=== PATIENT | female | born 1985 | race Caucasian/White ===

== ENCOUNTER 2019-11-16 07:45 | Outpatient (CLI) | payer OTHER ==
--- NOTE | 2019-11-16 14:17 | XRAY Report ---
Reason: SCOLIOSIS Procedure Date: 11/16/2019 Accession Number: [id number] / [id number] Procedure: WCP - Thoracic Spine 2 View CPT Code: Final Report FULL RESULT: PROCEDURE: Thoracic Spine 2 View INDICATIONS: SCOLIOSIS TECHNIQUE: 2 views of the thoracic spine were acquired. COMPARISON: None. FINDINGS: Bones: No fractures or dislocations. There is 27 degrees of convex right thoracic spine scoliosis with apex at the T9 vertebral body. No vertebral body segmentation anomalies. Mild degenerative disc changes noted throughout the thoracic spine. No suspicious bony lesions. 12 pairs of ribs are noted, and appear intact where visualized. Soft tissues: No paravertebral stripe thickening. IMPRESSION: Convex right thoracic spine scoliosis. Reviewed by: Patt Estrella MD, PhD on 11/16/2019 2:15 PM PDT Approved by: Patt Estrella MD, PhD on 11/16/2019 2:15 PM PDT Station ID: [id number]
== END 2019-11-16 23:59 | disposition home or self-care (01) ==
LOC: DI.WCP 07:45
PROVIDERS: ATTEND Physician Assistant
DX: M41.9 Scoliosis, unspecified (principal)
CPT/HCPCS: 72070

== ENCOUNTER 2019-11-17 15:45 | Outpatient (CLI) | payer OTHER ==
[2019-11-17 18:51] LABS: BASOPHILS # (AUTO) 0.1 10^3/uL (0.0-0.1); BASOPHILS % (AUTO) 0.9 %; EOSINOPHILS # (AUTO) 0.1 10^3/uL (0.0-0.7); EOSINOPHILS % (AUTO) 2.1 %; HGB - HEMOGLOBIN 13.6 g/dL (12.0-16.0); LYMPHOCYTES # (AUTO) 1.9 10^3/uL (1.5-3.5); LYMPHOCYTES % (AUTO) 27.7 %; MEAN CORPUSCULAR HEMOGLOBIN 30.9 pg (27.0-31.0); MEAN CORPUSCULAR VOLUME 96.6 fL (81.0-99.0); MEAN PLATELET VOLUME 10.3 fL (7.9-10.8); MONOCYTES # (AUTO) 0.4 10^3/uL (0.0-1.0); MONOCYTES % (AUTO) 6.6 %; NEUTROPHILS # (AUTO) 4.2 10^3/uL (1.5-6.6); NEUTROPHILS % (AUTO) 62.4 %; PLT - PLATELET COUNT 310 10^3/uL (130-450); RED CELL DISTRIBUTION WIDTH 12.3 % (12.0-15.0); WHITE BLOOD COUNT 6.7 x10^3/uL (4.8-10.8)
[2019-11-17 18:58] LABS: ALBUMIN 4.6 g/dL (3.2-5.5); ALBUMIN/GLOBULIN RATIO 1.4 (1.0-2.2); BILIRUBIN,TOTAL 0.2 mg/dL (0.2-1.0); CALCIUM 9.7 mg/dL (8.5-10.3); CREATININE 0.6 mg/dL (0.4-1.0)
[2019-11-17 19:50] LABS: HB2 TOTAL 14.6 g/dL; HEMOGLOBIN A1C 0.47 g/dL; HEMOGLOBIN A1C % 5.1 % (4.6-6.2)
== END 2019-11-17 23:59 | disposition home or self-care (01) ==
LOC: LAB.WCP 15:45
PROVIDERS: ATTEND Physician Assistant
DX: Z00.00 Encounter for general adult medical examination without abnormal findings (principal)
CPT/HCPCS: 36415; 80053; 83036; 84443; 85025

== ENCOUNTER 2019-11-24 12:23 | Outpatient (CLI) | payer OTHER ==
--- NOTE | 2019-11-24 15:22 | Ultrasound Report ---
PROCEDURE: Ext Limited Non Vascular INDICATIONS: LIPOMA RT PROX INNER THIGH TECHNIQUE: Real-time scanning was performed of the right inner thigh, with image documentation. COMPARISON: None. FINDINGS: Sonographic images of the inner thigh demonstrate multiple lymph nodes identified. There i s no pathological enlargement by size criteria. No focal fluid collections are identified. Visualized vascular structures are patent. IMPRESSION: Lymph nodes noted as above without pathologic enlargement by size criteria. Reviewed by: Mattie Coelho MD on 11/24/2019 3:20 PM PDT Approved by: Mattie Coelho MD on 11/24/2019 3:20 PM PDT Station ID: [id number]
== END 2019-11-24 12:24 | disposition home or self-care (01) ==
LOC: DI 12:23
PROVIDERS: ATTEND Physician Assistant
DX: D17.1 Benign lipomatous neoplasm of skin and subcutaneous tissue of trunk (principal)
CPT/HCPCS: 76882

== ENCOUNTER 2020-04-01 14:46 | Outpatient (CLI) | payer OTHER ==
--- NOTE | 2020-04-03 09:07 | MRI Report ---
PROCEDURE: Thoracic Spine W/O INDICATIONS: THORACIC BACK PAIN TECHNIQUE: Noncontrast sagittal T1 spine echo and T2 fast spin echo, sagittal STIR, axial T1 and T2 fast spin ec ho through the thoracic spine. COMPARISON: Thoracic spine radiographs 11/16/2019 FINDINGS: Image quality: Excellent. Alignment and Curvature: Moderate thoracic dextroscoliosis. No listhesis. Vertebral body heights main tained. Bone Marrow: No suspicious focal marrow signal abnormality. Mild discogenic marrow edema and a few op posing endplates. No edema to indicate compression fracture. Spinal Cord: Normal morphology and signal intensity of the thoracic cord. There is no syrinx. Regional Soft Tissues: Prevertebral and paraspinous soft tissues are within normal limits.. Miscellaneous: No spinal canal or neural foraminal stenosis at any level in the thoracic spine IMPRESSION: Scoliosis with no acute finding or other significant abnormality to explain symptoms. Reviewed by: Amish Pickard MD on 04/03/2020 9:06 AM PST Approved by: Amish Pickard MD on 04/03/2020 9:06 AM PST Station ID: [id number]
== END 2020-04-01 14:47 | disposition home or self-care (01) ==
LOC: DI 14:46
PROVIDERS: ATTEND Physician Assistant
DX: M54.6 Pain in thoracic spine (principal)
CPT/HCPCS: 72146

== ENCOUNTER 2020-11-28 08:00 | Outpatient (CLI) | payer OTHER | END 2020-11-28 23:59 | disposition home or self-care (01) | LOC: LAB.N 08:00 | PROVIDERS: ATTEND Nurse Practitioner | DX: R39.9 Unspecified symptoms and signs involving the genitourinary system (principal) | CPT/HCPCS: 87086 ==

== ENCOUNTER 2020-12-05 12:30 | Outpatient (CLI) | payer OTHER | END 2020-12-05 23:59 | disposition home or self-care (01) | LOC: LAB.N 12:30 | PROVIDERS: ATTEND Nurse Practitioner | DX: R39.9 Unspecified symptoms and signs involving the genitourinary system (principal) | CPT/HCPCS: 87086 ==

== ENCOUNTER 2020-12-13 08:00 | Outpatient (CLI) | payer OTHER ==
[2020-12-13 17:57] LABS: BILIRUBIN,URINE NEGATIVE (NEGATIVE); GLUCOSE, URINE (UA) NEGATIVE (NEGATIVE); KETONES,URINE (UA) NEGATIVE (NEGATIVE); LEUKOCYTE ESTERASE, URINE NEGATIVE (NEGATIVE); NITRITE,URINE NEGATIVE (NEGATIVE); OCCULT BLOOD,URINE TRACE-LYSE (NEGATIVE); PH,URINE 5.5 PH (5.0-7.5); PROTEIN,URINE NEGATIVE (NEGATIVE); UROBILINOGEN,URINE 0.2 (NORMAL) E.U./dL (NORMAL)
[2020-12-13 17:59] LABS: BACTERIA,URINE Rare /HPF (None Seen); CLARITY,URINE CLEAR (CLEAR); RBC,URINE 0-5 /HPF (0-5); SQUAMOUS EPITHELIAL CELL,UR RARE Squamous (<= Few); WBC,URINE 0-3 /HPF (0-5)
== END 2020-12-13 23:59 | disposition home or self-care (01) ==
LOC: LAB.N 08:00
PROVIDERS: ATTEND Physician Assistant Medical
DX: N39.0 Urinary tract infection, site not specified (principal); R39.9 Unspecified symptoms and signs involving the genitourinary system
CPT/HCPCS: 81001; 87086